=== PATIENT | male | born 1980 | race Native Hawaiian/Other Pacific Islander ===

== ENCOUNTER 2017-10-03 20:08 | Emergency (ER) | payer OTHER ==
[~2017-10-03] VITALS: Ht 177.8 cm; Wt 74.8 kg
[2017-10-03 21:00] LABS: PLATELET COUNT 262 K/uL (142-355)
[2017-10-03 21:19] LABS: POTASSIUM 3.6 mmol/L (3.6-5.2)
[2017-10-03 22:36] VITALS: BP 135/90; TEMP 100.3
== END 2017-10-03 22:37 | disposition home or self-care (01) ==
LOC: ED 20:08
DX: K52.9 Noninfective gastroenteritis and colitis, unspecified (principal)
CPT/HCPCS: 36415; 74022; 80053; 82150; 83690; 85027; 96360; 96361; 96375; 99284; J2405; J7120

== ENCOUNTER 2023-02-15 14:22 | Outpatient (CLI) | payer BC | END 2023-02-15 19:09 | disposition home or self-care (01) | LOC: RAD 14:22 | PROVIDERS: ATTEND Nurse Practitioner Family | DX: M25.551 Pain in right hip (principal) ==